=== PATIENT | male | born 1965 | race Caucasian/White ===

== ENCOUNTER 2023-12-29 22:34 | Emergency (ER) | payer OTHER ==
[~2023-12-29] VITALS: Ht 188 cm; Wt 79.5 kg
[2023-12-29 22:45] VITALS: BP 145/67; PULSE 98; RESP 19; TEMP 98.9; O2SAT 97
--- NOTE | 2023-12-29 23:17 | NUR ---
PT WAS TRESSPASSED FROM [facility] HE WAS STAYING AT. SPOKE WITH [employer]; PT MADE VAUGE SI COMMENTS AND COMPLAINED OF SEVERE BACK PAIN.
[2023-12-29 23:34] LABS: BASOPHILS # (AUTO) 0.1 X10'3 (0-0.2); BASOPHILS % (AUTO) 0.8 % (0-1); EOSINOPHILS # (AUTO) 0.3 X10'3 (0-0.9); EOSINOPHILS % (AUTO) 4.2 % (0-6); HEMATOCRIT 43.6 % (42.0-52.0); HEMOGLOBIN 14.6 g/dl (14.0-17.9); LYMPHOCYTES # (AUTO) 3.1 X10'3 (1.1-4.8); LYMPHOCYTES % (AUTO) 37.7 % (21-51); MEAN CORPUSCULAR HEMOGLOBIN 34.3 PG (27.0-31.0); MEAN CORPUSCULAR HGB CONC 33.4 g/dL (33.0-36.5); MEAN CORPUSCULAR VOLUME 102.7 FL (78-98); MEAN PLATELET VOLUME 7.4 FL (7.4-10.4); MONOCYTES # (AUTO) 0.4 X10'3 (0-0.9); MONOCYTES % (AUTO) 5.4 % (2-12); NEUTROPHILS # (AUTO) 4.2 X10'3 (1.8-7.7); NEUTROPHILS % (AUTO) 51.9 % (42-75); PLATELET COUNT 241 X10'3 (140-440); RED BLOOD COUNT 4.25 X10'6 (4.70-6.10); RED CELL DISTRIBUTION WIDTH 12.9 % (11.5-14.5); WHITE BLOOD COUNT 8.2 X10'3 (4.5-11.0)
[2023-12-29 23:49] LABS: ALBUMIN 3.9 G/DL (3.4-5.0); ANION GAP 15 (8-16); BLOOD UREA NITROGEN 12 MG/DL (7-18); BUN/CREATININE RATIO 15.6 (10.0-20.0); CALCIUM 8.5 MG/DL (8.5-10.1); CHLORIDE 107 MMOL/L (99-107); CREATININE 0.77 MG/DL (0.60-1.10); ETHANOL 200 MG/DL (<10); GLUCOSE 79 MG/DL (70-104); POTASSIUM 3.7 MMOL/L (3.5-5.1); SODIUM 146 MMOL/L (135-145); THYROID STIMULATING HORMONE 0.41 ulU/ml (0.34-4.50); TOTAL CARBON DIOXIDE 23.9 MMOL/L (24-32); eCRCL 118 ML/MIN; eGFR > 90 ML/MIN
== END 2023-12-30 01:01 | disposition home or self-care (01) ==
LOC: ER 22:35
DX: R45.851 Suicidal ideations (principal); R79.89 Other specified abnormal findings of blood chemistry
CPT/HCPCS: 36415; 80048; 80320; 84443; 85025; 99285